=== PATIENT | female | born 1970 | race Caucasian/White ===

== ENCOUNTER 2018-10-07 22:18 | Emergency (ER) | payer OTHER, SELFPAY ==
[2018-10-07] MEDS ORDERED: Sodium Chloride 0.9% 1,000 ML IV ONE (22:49)
[2018-10-07] MEDS ORDERED: Sodium Chloride 0.9% 1,000 ML ONE (23:00)
[2018-10-07 23:16] LABS: ALB/GLOB RATIO 1.4 (1.0-2.1); ALBUMIN 4.4 g/dL (3.5-5.0); ALT/SGPT 27 U/L (9-52); AST/SGOT 30 U/L (14-36); BLOOD UREA NITROGEN 17 mg/dL (7-17); CALCIUM 9.1 mg/dl (8.6-10.4); GFR NON-AFRICAN AMERICAN > 60; LIPASE 109 U/L (23-300)
[2018-10-07 23:24] LABS: BASO # 0.1 K/uL (0.0-0.2); BASO % 1.1 % (0.0-2.0); EOS # 0.3 K/uL (0.0-0.7); EOS % 4.3 % (0.0-4.0); HEMOGLOBIN 13.4 g/dL (11.0-16.0); LYMPH # 1.8 K/uL (1.0-4.3); LYMPH % 25.4 % (20.0-40.0); MEAN CORPUSCULAR HEMOGLOBIN 28.6 pg (27.0-31.0); MEAN PLATELET VOLUME 8.5 fL (7.2-11.7); MONO # 0.5 K/uL (0.0-0.8); MONO % 7.6 % (0.0-10.0); NEUT # 4.4 K/uL (1.8-7.0); NEUT % 61.6 % (50.0-75.0); RBC 4.68 Mil/uL (3.80-5.20); RED CELL DISTRIBUTION WIDTH 14.1 % (11.5-14.5); WHITE BLOOD COUNT 7.1 K/uL (4.8-10.8)
[2018-10-08 00:39] LABS: SQUAMOUS EPITHIAL 6 /hpf (0-5); URINE BILIRUBIN NEGATIVE (NEGATIVE); URINE BLOOD 2+ (NEGATIVE); URINE CLARITY Clear (Clear); URINE COLOR Colorless (YELLOW); URINE GLUCOSE (UA) NORMAL (Normal); URINE LEUKOCYTE ESTERASE NEG Leu/uL (Negative); URINE PROTEIN NEGATIVE (NEGATIVE); URINE UROBILINOGEN NORMAL mg/dL (0.2-1.0)
[2018-10-08 01:00] VITALS: BP 129/82; PULSE 65; RESP 14; TEMP 98; O2SAT 98
--- NOTE | 2018-10-08 03:12 | C.PDOC ---
History Of Present Illness 48 y/o female pt with hx of kidney stones presents to the ER c/o left flank pain. Associated sx includes mild nausea. Pt denies hematuria, vomiting, fever, chills, dysuria, frequency, headache, cough, chest pain, dizziness, vaginal b leeding and vaginal discharge. Time Seen by Provider: 10/07/18 22:35 Chief Complaint (Nursing): Abdominal Pain History/Exam Limitations: no limitations Onset/Duration Of Symptoms: Days Current Symptoms Are (Timing): Still Present Past Medical History Reviewed: Historical Data, Nursing Documentation, Vital Signs Vital Signs: Last Vital Signs Temp 98.0 F 10/08/18 00:59 Pulse 65 10/08/18 00:59 Resp 14 10/08/18 00:59 BP 129/82 10/08/18 00:59 Pulse Ox 98 10/08/18 00:59 - Medical History PMH: HTN Surgical History: (x 2) Family History: States: No Known Family Hx - Social History Hx Tobacco Use: No Hx Alcohol Use: No Hx Substance Use: No - Immunization History Hx Tetanus Toxoid Vaccination: No Hx Influenza Vaccination: No Hx Pneumococcal Vaccination: No Review Of Systems Constitutional: Negative for: Fever, Chills Cardiovascular: Negative for: Chest Pain Respiratory: Negative for: Cough Gastrointestinal: Positive for: Nausea, Abdominal Pain (flank). Negative for: Vomiting Genitourinary: Negative for: Dysuria, Hematuria, Vaginal Discharge, Vaginal Bleeding Neurological: Negative for: Headache, Dizziness Physical Exam - Physical Exam Appears: Non-toxic, No Acute Distress Skin: Warm, Dry Head: Normacephalic Chest: Symmetrical Cardiovascular: Rhythm Regular Respiratory: Normal Breath Sounds Gastrointestinal/Abdominal: Soft, No Tenderness Back: CVA Tenderness (left) Neurological/Psych: Oriented x3, Normal Speech ED Course And Treatment - Laboratory Results Result Diagrams: 10/07/18 22:57 10/07/18 22:57 O2 Sat by Pulse Oximetry: 98 (RA) Pulse Ox Interpretation: Normal Medical Decision Making Medical Decision Making: Impression: left flank pain Plans: -- CT abd& pelvis -- chem labs -- blood work -- IV fluids -- toradol -- urine cx -- POC urine -- UA Disposition - Disposition Referrals: Jesus Manuel Tinoco MD [Staff Provider] - Disposition: HOME/ ROUTINE Disposition Time: 01:45 Condition: GOOD Additional Instructions: FANG NUNEZ, thank you for letting us take care of you today. The emergency medical care you received today was directed at your acute symptoms. If you were prescribed any medication, please fill it and take as directed. It may take several days for your symptoms to resolve. Return to the Emergency Department if your symptoms worsen, do not improve, or if you have any other problems. Please contact your doctor or call one of the physicians/clinics you have been referred to that are listed on the Patient Visit Information form that is included in your discharge packet. Bring any paperwork you were given at discharge with you along with any medications you are taking to your follow up visit. Our treatment cannot replace ongoing medical care by a primary care provider outside of the emergency department. [facility]. Follow up with the urologist, Dr. Tinoco, in 3-5 days for re-evaluation and further management. FANG NUNEZ, [place] por dejarnos cuidar de nathen chery. La atencin mdica de emergencia que recibi hoy se dirigi a sharan sntomas agudos. Si le recetaron algn medicamento, llnelo y tmelo segn las indicaciones. Los sntomas pueden tardar varios suazo en resolverse. Regrese al Departamento de Emergencias si sharan sntomas empeoran, no mejoran o si tiene otros problemas. Comunquese con butler mdico o llame a sussy de los mdicos / clnicas a los que gonzalez sido referido que figuran en el formulario de Informacin de visita al paciente que se incluye en butler paquete de sarah. Lleve todos los documentos que le entregaron al momento del sarah junto con todos los medicamentos que est tomando para butler visita de seguimiento. Nuestro tratamiento no puede reemplazar la atencin mdica continua por parte de un proveedor de atencin primaria fuera del departamento de emergencias. [place] por permitir que el equipo de [facility] sea parte de butler atencin hoy. Ron un seguimiento con el urlogo, el Dr. Tinoco, en 3 a 5 suazo para larissa reevaluacin y manejo adicional. Prescriptions: Ciprofloxacin [Cipro] 500 mg PO BID #14 tab Ibuprofen [Motrin] 600 mg PO Q6 PRN #20 tab PRN Reason: Pain, Moderate (4-7) Tamsulosin [Flomax] 0.4 mg PO DAILY #7 cap Instructions: Kidney Stones (DC), How to Strain Your Urine Forms: Gen Discharge Inst Monegasque, [employer] (Monegasque) Print Language: ICELANDIC - Clinical Impression Clinical Impression: Kidney stone - Scribe Statement The provider has reviewed the documentation as recorded by the Scribe Patrick Do Provider Attestation: All medical record entries made by the Scribe were at my direction and personally dictated by me. I have reviewed the chart and agree that the record accurately reflects my personal performance of the history, physical exam, medical decision making, and the department course for this patient. I have also personally directed, reviewed, and agree with the discharge instructions and disposition.
--- NOTE | 2018-10-08 18:12 | CT ---
Date of service: 10/07/2018 PROCEDURE: CT Abdomen and Pelvis without intravenous contrast HISTORY: left flank pain - h/o kidney stones COMPARISON: None. TECHNIQUE: Without contrast.. Contrast dose: 0 Radiation dose: Total exam DLP = 891.2 mGy-cm. This CT exam was performed using one or more of the following dose reduction techniques: Automated exposure control, adjustment of the mA and/or kV according to patient size, and/or use of iterative reconstruction technique. FINDINGS: LOWER THORAX: Mild cardiomegaly. No infiltrate/effusion. LIVER: Unremarkable. No gross lesion or ductal dilatation. GALLBLADDER AND BILE DUCTS: Unremarkable. PANCREAS: Unremarkable. No gross lesion or ductal dilatation. SPLEEN: Unremarkable. ADRENALS: Unremarkable. No mass. KIDNEYS AND URETERS: Left hydronephrosis. Obstructing 5 mm calculus mid left ureter. No right hydronephrosis. No renal mass. No renal calculus VASCULATURE: Unremarkable. No aortic aneurysm. No aortic atherosclerotic calcification or mural plaque present. BOWEL: Unremarkable. No obstruction. No gross mural thickening. APPENDIX: Unremarkable. Normal appendix. PERITONEUM: Unremarkable. No free fluid. No free air. LYMPH NODES: Unremarkable. No enlarged lymph nodes. BLADDER: Unremarkable. REPRODUCTIVE: Normal uterus BONES: No acute fracture. OTHER FINDINGS: None. IMPRESSION: Obstructing 5 mm calculus mid left ureter. Mild left hydroureteronephrosis. Mild cardiomegaly. No additional abnormality. The preliminary findings for this examination were reported by [facility] at 1:04 a.m. on 10/08/2018. There is concurrence of this report with the preliminary findings.
== END 2018-10-08 01:50 | disposition home or self-care (01) ==
LOC: C.ER 22:18
DX: N13.2 Hydronephrosis with renal and ureteral calculous obstruction (principal); Z87.442 Personal history of urinary calculi
CPT/HCPCS: 74176; 80053; 81001; 83690; 85025; 87086; 96374; 99284; J1885; J7030